=== PATIENT | female | born 1935 | race Caucasian/White ===

== ENCOUNTER 2024-05-10 09:38 | Emergency (ER) | payer MEDICARE, SELFPAY ==
[2024-05-10 09:44] VITALS: BP 128/57; PULSE 90; RESP 20; TEMP 36.2; O2SAT 99
--- NOTE | 2024-05-10 09:47 | ED.RECABL ---
HPI - Recheck/Abnormal Lab/Rx General Chief Complaint: Recheck/Abnormal Lab/Rx Stated Complaint: low hgb Time Seen by Provider: 05/10/24 09:39 History of Present Illness HPI narrative: Patient has history of iron deficiency anemia, with transfusions in the past, she is denying any complaints but had [facility] with hemoglobin found to be 6.9 and she was sent here. Denies any chest pain, shortness of breath, blood in her stool, or any other complaints other than some pain to her left leg. Related Data Home Medications Medication Instructions Recorded Confirmed atorvastatin 80 mg tablet mg 05/10/24 clopidogrel 75 mg tablet mg 05/10/24 dexamethasone 4 mg tablet mg 05/10/24 ezetimibe 10 mg tablet mg 05/10/24 ibuprofen 400 mg tablet mg 05/10/24 losartan 100 tablet 05/10/24 mg-hydrochlorothiazide 25 mg tablet metoprolol succinate 25 mg mg PO 05/10/24 tablet,extended release 24 hr oxybutynin chloride 5 mg mg PO 05/10/24 tablet,extended release 24 hr Allergies Allergy/AdvReac Type Severity Reaction Status Date / Time sulfamethoxazole Allergy Unknown Verified 05/10/24 10:40 [From Sulfamethoxazole-Trimethoprim] trimethoprim Allergy Unknown Verified 05/10/24 10:40 Review of Systems Review of Systems: All systems reviewed & are unremarkable except as noted in HPI and below Exam Narrative: EXAMINATION OF ORGAN SYSTEMS/BODY AREAS: Constitutional: Vital signs per nursing GENERAL:[No acute distress, non-toxic appearing.] HEAD: Normal with no signs of head trauma. EYES: EOMI ENT: Diminished hearing LUNGS: Nonlabored breathing. HEART: [Regular rate and rhythm] ABD: [Soft], [nontender to palpation] EXT: Normal range of motion, no deformities SKIN: [No rashes or lesions.] NEURO: [Alert. No gross focal sensory or strength deficits.] PSYCH: Normal affect Course Vital Signs Vital signs: Vital Signs Temperature 97.1 F L 05/10/24 09:44 Pulse Rate 90 05/10/24 09:44 Respiratory Rate 20 05/10/24 09:44 Blood Pressure 128/57 L 05/10/24 09:44 Pulse Oximetry 99 05/10/24 09:44 Temperature 97.1 F L 05/10/24 09:44 Pulse Rate 90 05/10/24 09:44 Respiratory Rate 20 05/10/24 09:44 Blood Pressure 128/57 L 05/10/24 09:44 Pulse Oximetry 99 05/10/24 09:44 MDM - Recheck/Abnormal Lab/Rx MDM Narrative Medical decision making narrative: Patient presents here for anemia, she does have history of anemia. Hemoglobin here is 7.3. She is denying any symptoms or complaints. No signs of active bleeding. She is very well-appearing here. I do feel she is stable for discharge at this time with return precautions and follow-up to PCP. Lab Data 05/10/24 10:14 Labs: Lab Results 05/10/24 Range/Units 10:14 WBC 4.0 L (4.5-10.0) K/mm3 RBC 2.58 L (4.2-5.4) M/mm3 Hgb 7.3 L (12.0-15.0) g/dL Hct 24.2 L (37.0-47.0) % MCV 93.8 (80-100) fl MCH 28.3 (26-34) pg MCHC 30.2 L (32-36) g/dl RDW 15.9 H (11.5-14.5) % Plt Count 113 L (150-375) k/mm3 MPV 10.7 H (7.4-10.4) fl Immature Gran % (Auto) 0.5 (0-0.5) % Neut % (Auto) 64.8 (45.5-73.1) % Lymph % (Auto) 20.7 (18.3-44.2) % [place] % (Auto) 12.9 H (2.6-8.5) % Eos % (Auto) 0.8 (0-4.4) % Baso % (Auto) 0.3 (0.2-1.2) % Lymph # (Auto) 0.82 L (0.9-3.2) K/mm3 [place] # (Auto) 0.5 (0.1-0.6) K/mm3 Eos # (Auto) 0.0 (0-0.3) K/mm3 Baso # (Auto) 0.0 (0.0-0.1) K/mm3 Abs Immat Gran (auto) 0.02 (0.00-0.031) K/mm3 Absolute Neuts (auto) 2.6 (1.3-6.7) K/mm3 Absolute Nucleated RBC 0.000 (0.0-0.012) K/mm3 Nucleated RBC % 0.0 (0.0-0.2) % Blood Type Pending Antibody Screen Pending Discharge Plan Discharge Clinical Impression: Anemia Patient Disposition: NH Fdc/Asst Living Condition: Stable Instructions: Anemia (ED) Additional Instructions: Please follow-up with primary care doctor. You can always return to t
[2024-05-10 10:26] LABS: Basophils Percent Auto 0.3 % (0.2-1.2); Eosinophils Percent Auto 0.8 % (0-4.4); Hematocrit 24.2 % (37.0-47.0); Hemoglobin 7.3 g/dL (12.0-15.0); Immature Granulocyte Absolute 0.02 K/mm3 (0.00-0.031); Immature Granulocyte Percent A 0.5 % (0-0.5); Lymphocytes Absolute Auto 0.82 K/mm3 (0.9-3.2); Lymphocytes Percent Auto 20.7 % (18.3-44.2); Mean Corpuscular HGB Conc 30.2 g/dl (32-36); Mean Corpuscular Hemoglobin 28.3 pg (26-34); Mean Corpuscular Volume 93.8 fl (80-100); Mean Platelet Volume 10.7 fl (7.4-10.4); Monocytes Absolute Auto 0.5 K/mm3 (0.1-0.6); Monocytes Percent Auto 12.9 % (2.6-8.5); Neutrophils Absolute Auto 2.6 K/mm3 (1.3-6.7); Neutrophils Percent Auto 64.8 % (45.5-73.1); Platelet Count Result 113 k/mm3 (150-375); Red Blood Count 2.58 M/mm3 (4.2-5.4); Red Cell Distribution Width 15.9 % (11.5-14.5)
[2024-05-10 10:30] VITALS: BP 123/54; PULSE 86; RESP 20; O2SAT 98
--- NOTE | 2024-05-10 11:02 | PC.NURSE ---
CALL PLACED TO [facility] - [facility] Rosales/ [place] SHE STATES THEY WILL SEND TRANSPORTATION TO PICK PT UP.
[2024-05-10 11:15] VITALS: BP 120/57; PULSE 80; RESP 16; O2SAT 100
== END 2024-05-10 11:30 ==
PROVIDERS: Emergency Provider Emergency Medicine; PCP Family Medicine
DX: D64.9 Anemia, unspecified (principal); Z79.02 Long term (current) use of antithrombotics/antiplatelets; Z79.899 Other long term (current) drug therapy
CPT/HCPCS: 36415; 85025; 86850; 86900; 86901; 99283